=== PATIENT | female | born 1955 | race African-American/Black ===

== ENCOUNTER → 2017-03-21 | Outpatient (CLI) | payer MEDICARE ==
[2017-03-18 03:00] VITALS: BP 139/85
[~2017-03-21] MED LIST: ACET500T68 PO; AMIT50TA PO; ASPI325T8 PO; CEPH-264 PO; CHOL500016 PO; CLOB15OI3 TP; CYCL10TA2 PO; GABA600T2 PO; LOSA50TA6 PO; METF-620 PO; METO25TA4 PO; MULT-47 PO; NAPR375T3 PO; NITR0.4T22 SL; NPH,100V5 SQ; NYST15PO9 TP; SERT50TA8 PO; SITA50TA PO; TRAM50TA PO; VENTOLIN HFA18 GM INH; [UNRECOGNIZED DRUG - CODE] PO
== END | disposition home or self-care (01) ==
LOC: PMGWOUND 12:36
PROVIDERS: ATTEND Emergency Medicine Undersea and Hyperbaric Medicine
DX: T81.31XA Disruption of external operation (surgical) wound, not elsewhere classified, initial encounter (principal); I12.9 Hypertensive chronic kidney disease with stage 1 through stage 4 chronic kidney disease, or unspecified chronic kidney disease; N18.4 Chronic kidney disease, stage 4 (severe); E66.9 Obesity, unspecified; Z68.43 Body mass index [BMI] 50.0-59.9, adult; Z88.8 Allergy status to other drugs, medicaments and biological substances; Z79.4 Long term (current) use of insulin; Z88.5 Allergy status to narcotic agent; Z88.0 Allergy status to penicillin; Z85.43 Personal history of malignant neoplasm of ovary; Z85.42 Personal history of malignant neoplasm of other parts of uterus; Y92.89 Other specified places as the place of occurrence of the external cause; Y83.8 Other surgical procedures as the cause of abnormal reaction of the patient, or of later complication, without mention of misadventure at the time of the procedure
CPT/HCPCS: 97597; 97598; 97606

== ENCOUNTER → 2017-03-28 | Outpatient (CLI) | payer MEDICARE ==
[2017-03-18 03:00] VITALS: BP 139/85
== END | disposition home or self-care (01) ==
LOC: PMGWOUND 10:56
PROVIDERS: ATTEND Emergency Medicine Undersea and Hyperbaric Medicine
DX: T81.31XD Disruption of external operation (surgical) wound, not elsewhere classified, subsequent encounter (principal); E11.22 Type 2 diabetes mellitus with diabetic chronic kidney disease; I12.9 Hypertensive chronic kidney disease with stage 1 through stage 4 chronic kidney disease, or unspecified chronic kidney disease; N18.4 Chronic kidney disease, stage 4 (severe); E66.9 Obesity, unspecified; M19.90 Unspecified osteoarthritis, unspecified site; E11.42 Type 2 diabetes mellitus with diabetic polyneuropathy; N61.1 Abscess of the breast and nipple; Z85.42 Personal history of malignant neoplasm of other parts of uterus; Z68.43 Body mass index [BMI] 50.0-59.9, adult; Z85.43 Personal history of malignant neoplasm of ovary; Z79.4 Long term (current) use of insulin; Z88.5 Allergy status to narcotic agent; Z88.0 Allergy status to penicillin; Z88.8 Allergy status to other drugs, medicaments and biological substances; Y83.8 Other surgical procedures as the cause of abnormal reaction of the patient, or of later complication, without mention of misadventure at the time of the procedure
CPT/HCPCS: 97606

== ENCOUNTER → 2017-04-04 | Outpatient (CLI) | payer MEDICARE ==
[2017-03-18 03:00] VITALS: BP 139/85
== END | disposition home or self-care (01) ==
LOC: PMGWOUND 10:36
PROVIDERS: ATTEND Emergency Medicine Undersea and Hyperbaric Medicine
DX: T81.31XD Disruption of external operation (surgical) wound, not elsewhere classified, subsequent encounter (principal); E11.22 Type 2 diabetes mellitus with diabetic chronic kidney disease; I12.9 Hypertensive chronic kidney disease with stage 1 through stage 4 chronic kidney disease, or unspecified chronic kidney disease; N18.4 Chronic kidney disease, stage 4 (severe); E66.9 Obesity, unspecified; E11.42 Type 2 diabetes mellitus with diabetic polyneuropathy; M19.90 Unspecified osteoarthritis, unspecified site; Z85.43 Personal history of malignant neoplasm of ovary; Z85.42 Personal history of malignant neoplasm of other parts of uterus; Z88.8 Allergy status to other drugs, medicaments and biological substances; Z88.0 Allergy status to penicillin; Z88.5 Allergy status to narcotic agent; Z79.4 Long term (current) use of insulin; Z68.43 Body mass index [BMI] 50.0-59.9, adult; Y83.8 Other surgical procedures as the cause of abnormal reaction of the patient, or of later complication, without mention of misadventure at the time of the procedure
CPT/HCPCS: 99214

== ENCOUNTER → 2017-04-11 | Outpatient (CLI) | payer MEDICARE ==
[2017-03-18 03:00] VITALS: BP 139/85
== END | disposition home or self-care (01) ==
LOC: PMGWOUND 11:35
PROVIDERS: ATTEND Emergency Medicine Undersea and Hyperbaric Medicine
DX: T81.31XA Disruption of external operation (surgical) wound, not elsewhere classified, initial encounter (principal); M19.90 Unspecified osteoarthritis, unspecified site; E66.9 Obesity, unspecified; E11.42 Type 2 diabetes mellitus with diabetic polyneuropathy; E11.22 Type 2 diabetes mellitus with diabetic chronic kidney disease; I12.9 Hypertensive chronic kidney disease with stage 1 through stage 4 chronic kidney disease, or unspecified chronic kidney disease; N18.4 Chronic kidney disease, stage 4 (severe); Z68.43 Body mass index [BMI] 50.0-59.9, adult; Z85.43 Personal history of malignant neoplasm of ovary; Z79.4 Long term (current) use of insulin; Y83.8 Other surgical procedures as the cause of abnormal reaction of the patient, or of later complication, without mention of misadventure at the time of the procedure; Y92.89 Other specified places as the place of occurrence of the external cause
CPT/HCPCS: 99213

== ENCOUNTER → 2017-04-18 | Outpatient (CLI) | payer MEDICARE ==
[2017-03-18 03:00] VITALS: BP 139/85
== END | disposition home or self-care (01) ==
LOC: PMGWOUND 11:16
PROVIDERS: ATTEND Emergency Medicine Undersea and Hyperbaric Medicine
DX: T81.31XD Disruption of external operation (surgical) wound, not elsewhere classified, subsequent encounter (principal); M19.90 Unspecified osteoarthritis, unspecified site; E11.42 Type 2 diabetes mellitus with diabetic polyneuropathy; I10 Essential (primary) hypertension; E66.9 Obesity, unspecified; Z85.43 Personal history of malignant neoplasm of ovary; Z68.43 Body mass index [BMI] 50.0-59.9, adult; E11.22 Type 2 diabetes mellitus with diabetic chronic kidney disease; I12.9 Hypertensive chronic kidney disease with stage 1 through stage 4 chronic kidney disease, or unspecified chronic kidney disease; N18.4 Chronic kidney disease, stage 4 (severe); Z99.2 Dependence on renal dialysis; Y83.8 Other surgical procedures as the cause of abnormal reaction of the patient, or of later complication, without mention of misadventure at the time of the procedure
CPT/HCPCS: 17250

== ENCOUNTER → 2017-04-25 | Outpatient (CLI) | payer MEDICARE ==
[2017-03-18 03:00] VITALS: BP 139/85
== END | disposition home or self-care (01) ==
LOC: PMGWOUND 10:20
PROVIDERS: ATTEND Emergency Medicine Undersea and Hyperbaric Medicine
DX: T81.31XD Disruption of external operation (surgical) wound, not elsewhere classified, subsequent encounter (principal); N61.1 Abscess of the breast and nipple; M19.90 Unspecified osteoarthritis, unspecified site; E66.9 Obesity, unspecified; E11.42 Type 2 diabetes mellitus with diabetic polyneuropathy; Z85.43 Personal history of malignant neoplasm of ovary; Z68.43 Body mass index [BMI] 50.0-59.9, adult; E11.22 Type 2 diabetes mellitus with diabetic chronic kidney disease; I12.9 Hypertensive chronic kidney disease with stage 1 through stage 4 chronic kidney disease, or unspecified chronic kidney disease; N18.4 Chronic kidney disease, stage 4 (severe); Z99.2 Dependence on renal dialysis; Z79.4 Long term (current) use of insulin; Y83.8 Other surgical procedures as the cause of abnormal reaction of the patient, or of later complication, without mention of misadventure at the time of the procedure
CPT/HCPCS: 17250

== ENCOUNTER → 2017-05-09 | Outpatient (CLI) | payer MEDICARE ==
[2017-03-18 03:00] VITALS: BP 139/85
[~2017-05-09] MED LIST changes: +NAPR-695 PO; -NAPR375T3 PO
== END | disposition home or self-care (01) ==
LOC: PMGWOUND 10:11
PROVIDERS: ATTEND Emergency Medicine Undersea and Hyperbaric Medicine
DX: T81.31XD Disruption of external operation (surgical) wound, not elsewhere classified, subsequent encounter (principal); E66.9 Obesity, unspecified; E11.42 Type 2 diabetes mellitus with diabetic polyneuropathy; M19.90 Unspecified osteoarthritis, unspecified site; E11.22 Type 2 diabetes mellitus with diabetic chronic kidney disease; I12.9 Hypertensive chronic kidney disease with stage 1 through stage 4 chronic kidney disease, or unspecified chronic kidney disease; N18.4 Chronic kidney disease, stage 4 (severe); Z85.43 Personal history of malignant neoplasm of ovary; Z85.42 Personal history of malignant neoplasm of other parts of uterus; Z90.49 Acquired absence of other specified parts of digestive tract; Z68.43 Body mass index [BMI] 50.0-59.9, adult; Z79.4 Long term (current) use of insulin; Z99.2 Dependence on renal dialysis; Y83.8 Other surgical procedures as the cause of abnormal reaction of the patient, or of later complication, without mention of misadventure at the time of the procedure
CPT/HCPCS: 17250

== ENCOUNTER → 2017-05-16 | Outpatient (CLI) | payer MEDICARE ==
[2017-03-18 03:00] VITALS: BP 139/85
== END | disposition home or self-care (01) ==
LOC: PMGWOUND 10:17
PROVIDERS: ATTEND Emergency Medicine Undersea and Hyperbaric Medicine
DX: T81.31XD Disruption of external operation (surgical) wound, not elsewhere classified, subsequent encounter (principal); M19.90 Unspecified osteoarthritis, unspecified site; E11.42 Type 2 diabetes mellitus with diabetic polyneuropathy; E66.9 Obesity, unspecified; Z85.43 Personal history of malignant neoplasm of ovary; Y83.8 Other surgical procedures as the cause of abnormal reaction of the patient, or of later complication, without mention of misadventure at the time of the procedure
CPT/HCPCS: 99214

== ENCOUNTER → 2017-05-23 | Outpatient (CLI) | payer MEDICARE ==
[2017-03-18 03:00] VITALS: BP 139/85
== END | disposition home or self-care (01) ==
LOC: PMGWOUND 13:44
PROVIDERS: ATTEND Emergency Medicine Undersea and Hyperbaric Medicine
DX: T81.31XD Disruption of external operation (surgical) wound, not elsewhere classified, subsequent encounter (principal); N61.1 Abscess of the breast and nipple; E66.9 Obesity, unspecified; E11.42 Type 2 diabetes mellitus with diabetic polyneuropathy; M19.90 Unspecified osteoarthritis, unspecified site; E11.22 Type 2 diabetes mellitus with diabetic chronic kidney disease; I12.9 Hypertensive chronic kidney disease with stage 1 through stage 4 chronic kidney disease, or unspecified chronic kidney disease; N18.4 Chronic kidney disease, stage 4 (severe); Z85.42 Personal history of malignant neoplasm of other parts of uterus; Z99.2 Dependence on renal dialysis; Z79.4 Long term (current) use of insulin; Z68.43 Body mass index [BMI] 50.0-59.9, adult; Z90.49 Acquired absence of other specified parts of digestive tract; Z85.43 Personal history of malignant neoplasm of ovary; Y83.8 Other surgical procedures as the cause of abnormal reaction of the patient, or of later complication, without mention of misadventure at the time of the procedure
CPT/HCPCS: 99213

== ENCOUNTER → 2017-06-06 | Outpatient (CLI) | payer MEDICARE ==
[2017-03-18 03:00] VITALS: BP 139/85
== END | disposition home or self-care (01) ==
LOC: PMGWOUND 10:18
PROVIDERS: ATTEND Emergency Medicine Undersea and Hyperbaric Medicine
DX: T81.31XD Disruption of external operation (surgical) wound, not elsewhere classified, subsequent encounter (principal); M19.90 Unspecified osteoarthritis, unspecified site; E11.42 Type 2 diabetes mellitus with diabetic polyneuropathy; Z85.43 Personal history of malignant neoplasm of ovary; E11.22 Type 2 diabetes mellitus with diabetic chronic kidney disease; I12.9 Hypertensive chronic kidney disease with stage 1 through stage 4 chronic kidney disease, or unspecified chronic kidney disease; N18.4 Chronic kidney disease, stage 4 (severe); Z99.2 Dependence on renal dialysis; Z79.4 Long term (current) use of insulin; Y83.8 Other surgical procedures as the cause of abnormal reaction of the patient, or of later complication, without mention of misadventure at the time of the procedure
CPT/HCPCS: 99213

== ENCOUNTER → 2017-07-18 | Outpatient (CLI) | payer MEDICARE ==
[2017-03-18 03:00] VITALS: BP 139/85
[~2017-07-18] MED LIST changes: +CIPR250T30 PO
== END | disposition home or self-care (01) ==
LOC: PMGWOUND 10:00
PROVIDERS: ATTEND Emergency Medicine Undersea and Hyperbaric Medicine
DX: T81.31XD Disruption of external operation (surgical) wound, not elsewhere classified, subsequent encounter (principal); L30.8 Other specified dermatitis; B36.9 Superficial mycosis, unspecified; E66.9 Obesity, unspecified; E11.22 Type 2 diabetes mellitus with diabetic chronic kidney disease; I12.9 Hypertensive chronic kidney disease with stage 1 through stage 4 chronic kidney disease, or unspecified chronic kidney disease; N18.4 Chronic kidney disease, stage 4 (severe); E11.42 Type 2 diabetes mellitus with diabetic polyneuropathy; M19.90 Unspecified osteoarthritis, unspecified site; Z68.43 Body mass index [BMI] 50.0-59.9, adult; Z99.2 Dependence on renal dialysis; Z79.4 Long term (current) use of insulin; Z90.49 Acquired absence of other specified parts of digestive tract; Z85.42 Personal history of malignant neoplasm of other parts of uterus; Z85.43 Personal history of malignant neoplasm of ovary; Y83.8 Other surgical procedures as the cause of abnormal reaction of the patient, or of later complication, without mention of misadventure at the time of the procedure
CPT/HCPCS: 99214

== ENCOUNTER → 2017-08-01 | Outpatient (CLI) | payer MEDICARE ==
[2017-03-18 03:00] VITALS: BP 139/85
[~2017-08-01] MED LIST changes: -CIPR250T30 PO
--- NOTE | 2017-08-01 12:24 | RAD ---
DATE: 08/01/2017 EXAM: DIGITAL DIAGNOSTIC BILATERAL HISTORY: Follow-up left breast abscess, nonhealing wound COMPARISON: 03/16/2013 This study was interpreted with the benefit of Computerized Aided Detection (CAD). The breast parenchyma is primarily fatty replaced. Breast parenchyma level density A. FINDINGS: No new or enlarging breast densities are seen. There are scattered microcalcifications in both breasts. These have generally progressed since the previous study. These include 2 clusters in the lateral aspect of the left breast. The most prominent of these lies anteriorly. A magnification view of this most prominent anterior cluster demonstrates relatively benign features. IMPRESSION: Probably benign microcalcifications in the left breast. Mammographic surveillance consisting of left mammograms in 6 months and bilateral mammography at one year is suggested. BI-RADS CATEGORY: 3 PROBABLY BENIGN FINDING(S)-SHORT INTERVAL FOLLOW-UP SUGGESTED RECOMMENDED FOLLOW-UP: 6M 6 MONTH FOLLOW-UP PQRS compliance statement: Patient information was entered into a reminder system with a target due date for the next mammogram. Mammography is a sensitive method for finding small breast cancers, but it does not detect them all and is not a substitute for careful clinical examination. A negative mammogram does not negate a clinically suspicious finding and should not result in delay in biopsying a clinically suspicious abnormality. "Our facility is accredited by the [employer] Mammography Program."
== END | disposition home or self-care (01) ==
LOC: MAMMO 10:49
PROVIDERS: ATTEND Surgery
DX: N61.1 Abscess of the breast and nipple (principal)
CPT/HCPCS: G0204; 77066

== ENCOUNTER → 2017-08-01 | Outpatient (CLI) | payer MEDICARE ==
[2017-03-18 03:00] VITALS: BP 139/85
== END | disposition home or self-care (01) ==
LOC: PMGWOUND 09:56
PROVIDERS: ATTEND Emergency Medicine Undersea and Hyperbaric Medicine
DX: T81.31XD Disruption of external operation (surgical) wound, not elsewhere classified, subsequent encounter (principal); L30.8 Other specified dermatitis; B36.9 Superficial mycosis, unspecified; M19.90 Unspecified osteoarthritis, unspecified site; G62.9 Polyneuropathy, unspecified; E66.9 Obesity, unspecified; E11.22 Type 2 diabetes mellitus with diabetic chronic kidney disease; I12.9 Hypertensive chronic kidney disease with stage 1 through stage 4 chronic kidney disease, or unspecified chronic kidney disease; N18.4 Chronic kidney disease, stage 4 (severe); E11.42 Type 2 diabetes mellitus with diabetic polyneuropathy; Z99.2 Dependence on renal dialysis; Z79.4 Long term (current) use of insulin; Z85.42 Personal history of malignant neoplasm of other parts of uterus; Z90.10 Acquired absence of unspecified breast and nipple; Z85.43 Personal history of malignant neoplasm of ovary; Z68.43 Body mass index [BMI] 50.0-59.9, adult; Z90.49 Acquired absence of other specified parts of digestive tract; Y83.8 Other surgical procedures as the cause of abnormal reaction of the patient, or of later complication, without mention of misadventure at the time of the procedure
CPT/HCPCS: 99214

== ENCOUNTER → 2017-08-08 | Outpatient (CLI) | payer MEDICARE ==
[2017-03-18 03:00] VITALS: BP 139/85
== END | disposition home or self-care (01) ==
LOC: PMGWOUND 09:53
PROVIDERS: ATTEND Emergency Medicine Undersea and Hyperbaric Medicine
DX: T81.31XD Disruption of external operation (surgical) wound, not elsewhere classified, subsequent encounter (principal); L30.8 Other specified dermatitis; B36.9 Superficial mycosis, unspecified; M19.90 Unspecified osteoarthritis, unspecified site; E66.9 Obesity, unspecified; E11.22 Type 2 diabetes mellitus with diabetic chronic kidney disease; I12.9 Hypertensive chronic kidney disease with stage 1 through stage 4 chronic kidney disease, or unspecified chronic kidney disease; N18.4 Chronic kidney disease, stage 4 (severe); E11.42 Type 2 diabetes mellitus with diabetic polyneuropathy; Z90.10 Acquired absence of unspecified breast and nipple; Z90.49 Acquired absence of other specified parts of digestive tract; Z68.43 Body mass index [BMI] 50.0-59.9, adult; Z85.42 Personal history of malignant neoplasm of other parts of uterus; Z79.4 Long term (current) use of insulin; Z99.2 Dependence on renal dialysis; Z85.43 Personal history of malignant neoplasm of ovary; Y83.8 Other surgical procedures as the cause of abnormal reaction of the patient, or of later complication, without mention of misadventure at the time of the procedure
CPT/HCPCS: 82962; 99214

== ENCOUNTER → 2017-08-25 | Outpatient (CLI) | payer MEDICARE | END | disposition home or self-care (01) | LOC: PMGWOUND 13:06 | DX: T81.31XD Disruption of external operation (surgical) wound, not elsewhere classified, subsequent encounter (principal); L30.8 Other specified dermatitis; B36.9 Superficial mycosis, unspecified; E11.22 Type 2 diabetes mellitus with diabetic chronic kidney disease; I12.9 Hypertensive chronic kidney disease with stage 1 through stage 4 chronic kidney disease, or unspecified chronic kidney disease; N18.4 Chronic kidney disease, stage 4 (severe); E11.42 Type 2 diabetes mellitus with diabetic polyneuropathy; M19.90 Unspecified osteoarthritis, unspecified site; J45.909 Unspecified asthma, uncomplicated; E66.9 Obesity, unspecified; Z68.43 Body mass index [BMI] 50.0-59.9, adult; Z85.42 Personal history of malignant neoplasm of other parts of uterus; Z79.4 Long term (current) use of insulin; Z99.2 Dependence on renal dialysis; Z85.43 Personal history of malignant neoplasm of ovary; Y83.8 Other surgical procedures as the cause of abnormal reaction of the patient, or of later complication, without mention of misadventure at the time of the procedure | CPT/HCPCS: 99214 ==

== ENCOUNTER → 2017-09-15 | Outpatient (CLI) | payer BC, MEDICARE | END | disposition home or self-care (01) | LOC: PMGWOUND 12:20 | DX: T81.31XD Disruption of external operation (surgical) wound, not elsewhere classified, subsequent encounter (principal); B36.9 Superficial mycosis, unspecified; L30.8 Other specified dermatitis; E11.22 Type 2 diabetes mellitus with diabetic chronic kidney disease; I12.9 Hypertensive chronic kidney disease with stage 1 through stage 4 chronic kidney disease, or unspecified chronic kidney disease; N18.4 Chronic kidney disease, stage 4 (severe); E11.42 Type 2 diabetes mellitus with diabetic polyneuropathy; M19.90 Unspecified osteoarthritis, unspecified site; J45.909 Unspecified asthma, uncomplicated; E66.9 Obesity, unspecified; Z68.43 Body mass index [BMI] 50.0-59.9, adult; Z85.42 Personal history of malignant neoplasm of other parts of uterus; Z99.2 Dependence on renal dialysis; Z85.43 Personal history of malignant neoplasm of ovary; Y83.8 Other surgical procedures as the cause of abnormal reaction of the patient, or of later complication, without mention of misadventure at the time of the procedure | CPT/HCPCS: 99214 ==

== ENCOUNTER → 2017-09-29 | Outpatient (CLI) | payer BC | END | disposition home or self-care (01) | LOC: PMGWOUND 11:40 | DX: T81.31XD Disruption of external operation (surgical) wound, not elsewhere classified, subsequent encounter (principal); L30.8 Other specified dermatitis; B36.9 Superficial mycosis, unspecified; E11.22 Type 2 diabetes mellitus with diabetic chronic kidney disease; I12.9 Hypertensive chronic kidney disease with stage 1 through stage 4 chronic kidney disease, or unspecified chronic kidney disease; N18.4 Chronic kidney disease, stage 4 (severe); E11.42 Type 2 diabetes mellitus with diabetic polyneuropathy; M19.90 Unspecified osteoarthritis, unspecified site; J45.909 Unspecified asthma, uncomplicated; E66.9 Obesity, unspecified; Z68.43 Body mass index [BMI] 50.0-59.9, adult; Z85.42 Personal history of malignant neoplasm of other parts of uterus; Z99.2 Dependence on renal dialysis; Z85.43 Personal history of malignant neoplasm of ovary; Y83.8 Other surgical procedures as the cause of abnormal reaction of the patient, or of later complication, without mention of misadventure at the time of the procedure | CPT/HCPCS: 99214 ==

== ENCOUNTER → 2017-10-13 | Outpatient (CLI) | payer BC | END | disposition home or self-care (01) | LOC: PMGWOUND 11:29 | DX: T81.31XD Disruption of external operation (surgical) wound, not elsewhere classified, subsequent encounter (principal); L30.8 Other specified dermatitis; B36.9 Superficial mycosis, unspecified; E11.22 Type 2 diabetes mellitus with diabetic chronic kidney disease; I12.9 Hypertensive chronic kidney disease with stage 1 through stage 4 chronic kidney disease, or unspecified chronic kidney disease; N18.4 Chronic kidney disease, stage 4 (severe); E11.42 Type 2 diabetes mellitus with diabetic polyneuropathy; F32.9 Major depressive disorder, single episode, unspecified; E78.5 Hyperlipidemia, unspecified; E11.65 Type 2 diabetes mellitus with hyperglycemia; M19.90 Unspecified osteoarthritis, unspecified site; J45.909 Unspecified asthma, uncomplicated; E66.9 Obesity, unspecified; Z68.43 Body mass index [BMI] 50.0-59.9, adult; Z85.42 Personal history of malignant neoplasm of other parts of uterus; Z99.2 Dependence on renal dialysis; Z85.43 Personal history of malignant neoplasm of ovary; Z79.4 Long term (current) use of insulin; Y83.8 Other surgical procedures as the cause of abnormal reaction of the patient, or of later complication, without mention of misadventure at the time of the procedure | CPT/HCPCS: 99212 ==

== ENCOUNTER → 2017-10-28 | Outpatient (CLI) | payer BC | END | disposition home or self-care (01) | LOC: PMGWOUND 09:57 | DX: T81.31XD Disruption of external operation (surgical) wound, not elsewhere classified, subsequent encounter (principal); L30.8 Other specified dermatitis; B36.9 Superficial mycosis, unspecified; E11.22 Type 2 diabetes mellitus with diabetic chronic kidney disease; I12.9 Hypertensive chronic kidney disease with stage 1 through stage 4 chronic kidney disease, or unspecified chronic kidney disease; N18.4 Chronic kidney disease, stage 4 (severe); E11.42 Type 2 diabetes mellitus with diabetic polyneuropathy; F32.9 Major depressive disorder, single episode, unspecified; E78.5 Hyperlipidemia, unspecified; E11.65 Type 2 diabetes mellitus with hyperglycemia; M19.90 Unspecified osteoarthritis, unspecified site; J45.909 Unspecified asthma, uncomplicated; E66.9 Obesity, unspecified; E03.9 Hypothyroidism, unspecified; G89.29 Other chronic pain; Z68.43 Body mass index [BMI] 50.0-59.9, adult; Z85.42 Personal history of malignant neoplasm of other parts of uterus; Z99.2 Dependence on renal dialysis; Z79.82 Long term (current) use of aspirin; Z85.43 Personal history of malignant neoplasm of ovary; Z79.4 Long term (current) use of insulin; Y83.8 Other surgical procedures as the cause of abnormal reaction of the patient, or of later complication, without mention of misadventure at the time of the procedure | CPT/HCPCS: 99213 ==

== ENCOUNTER → 2017-11-14 | Outpatient (CLI) | payer BC | END | disposition home or self-care (01) | LOC: SLPLAB 18:29 | DX: G47.33 Obstructive sleep apnea (adult) (pediatric) (principal) | CPT/HCPCS: 95810 ==

== ENCOUNTER → 2017-11-15 | Outpatient (CLI) | payer BC | END | disposition home or self-care (01) | LOC: PMGWOUND 10:01 | DX: T81.31XD Disruption of external operation (surgical) wound, not elsewhere classified, subsequent encounter (principal); L30.8 Other specified dermatitis; B36.9 Superficial mycosis, unspecified; E11.22 Type 2 diabetes mellitus with diabetic chronic kidney disease; I12.9 Hypertensive chronic kidney disease with stage 1 through stage 4 chronic kidney disease, or unspecified chronic kidney disease; N18.4 Chronic kidney disease, stage 4 (severe); E11.42 Type 2 diabetes mellitus with diabetic polyneuropathy; F32.9 Major depressive disorder, single episode, unspecified; E78.5 Hyperlipidemia, unspecified; E11.65 Type 2 diabetes mellitus with hyperglycemia; M19.90 Unspecified osteoarthritis, unspecified site; J45.909 Unspecified asthma, uncomplicated; E66.9 Obesity, unspecified; E03.9 Hypothyroidism, unspecified; G89.29 Other chronic pain; Z68.43 Body mass index [BMI] 50.0-59.9, adult; Z85.42 Personal history of malignant neoplasm of other parts of uterus; Z99.2 Dependence on renal dialysis; Z79.82 Long term (current) use of aspirin; Z85.43 Personal history of malignant neoplasm of ovary; Z79.4 Long term (current) use of insulin; Y83.8 Other surgical procedures as the cause of abnormal reaction of the patient, or of later complication, without mention of misadventure at the time of the procedure | CPT/HCPCS: 99214 ==

== ENCOUNTER → 2017-11-29 | Outpatient (CLI) | payer BC | END | disposition home or self-care (01) | LOC: PMGWOUND 10:19 | DX: T81.31XD Disruption of external operation (surgical) wound, not elsewhere classified, subsequent encounter (principal); L30.8 Other specified dermatitis; B36.9 Superficial mycosis, unspecified; E11.22 Type 2 diabetes mellitus with diabetic chronic kidney disease; I12.9 Hypertensive chronic kidney disease with stage 1 through stage 4 chronic kidney disease, or unspecified chronic kidney disease; N18.4 Chronic kidney disease, stage 4 (severe); E11.42 Type 2 diabetes mellitus with diabetic polyneuropathy; F32.9 Major depressive disorder, single episode, unspecified; E78.5 Hyperlipidemia, unspecified; E11.65 Type 2 diabetes mellitus with hyperglycemia; M19.90 Unspecified osteoarthritis, unspecified site; J45.909 Unspecified asthma, uncomplicated; E66.9 Obesity, unspecified; E03.9 Hypothyroidism, unspecified; G89.29 Other chronic pain; Z68.43 Body mass index [BMI] 50.0-59.9, adult; Z85.42 Personal history of malignant neoplasm of other parts of uterus; Z99.2 Dependence on renal dialysis; Z79.82 Long term (current) use of aspirin; Z85.43 Personal history of malignant neoplasm of ovary; Z79.4 Long term (current) use of insulin; Y83.8 Other surgical procedures as the cause of abnormal reaction of the patient, or of later complication, without mention of misadventure at the time of the procedure | CPT/HCPCS: 99214 ==

== ENCOUNTER → 2017-12-13 | Outpatient (CLI) | payer BC | END | disposition home or self-care (01) | LOC: PMGWOUND 10:01 | DX: T81.31XD Disruption of external operation (surgical) wound, not elsewhere classified, subsequent encounter (principal); L30.8 Other specified dermatitis; B36.9 Superficial mycosis, unspecified; E11.22 Type 2 diabetes mellitus with diabetic chronic kidney disease; I12.9 Hypertensive chronic kidney disease with stage 1 through stage 4 chronic kidney disease, or unspecified chronic kidney disease; N18.4 Chronic kidney disease, stage 4 (severe); E11.42 Type 2 diabetes mellitus with diabetic polyneuropathy; F32.9 Major depressive disorder, single episode, unspecified; E78.5 Hyperlipidemia, unspecified; E11.65 Type 2 diabetes mellitus with hyperglycemia; M19.90 Unspecified osteoarthritis, unspecified site; J45.909 Unspecified asthma, uncomplicated; E66.9 Obesity, unspecified; E03.9 Hypothyroidism, unspecified; G89.29 Other chronic pain; Z68.43 Body mass index [BMI] 50.0-59.9, adult; Z85.42 Personal history of malignant neoplasm of other parts of uterus; Z99.2 Dependence on renal dialysis; Z79.82 Long term (current) use of aspirin; Z85.43 Personal history of malignant neoplasm of ovary; Z79.4 Long term (current) use of insulin; Y83.8 Other surgical procedures as the cause of abnormal reaction of the patient, or of later complication, without mention of misadventure at the time of the procedure | CPT/HCPCS: G0463 ==

== ENCOUNTER 2018-09-26 12:35 | Emergency (ER) | payer BC, OTHER ==
[~2018-09-26] VITALS: Ht 162.6 cm; Wt 136.5 kg
[~2018-09-26 12:35] MED LIST changes: +CIPR250T30 PO; +LEVO75TA5 PO; +LOSA-73 PO; -LOSA50TA6 PO; -METF-620 PO; +METF10007 PO; +METF500T16 PO; +ONDA8TAB12 PO
[2018-09-26] MEDS ORDERED: IV NORMAL SALINE 1000ML BAG 1,000 ML IV SCH (13:21)
[2018-09-26 13:33] LABS: BILIRUBIN,URINE NEGATIVE (NEG); CLARITY,URINE CLEAR; COLOR,URINE YELLOW; NITRITE,URINE NEGATIVE (NEG); PH,URINE 5.5; PROTEIN,URINE 100 mg/dL (NEG-TRACE)
[2018-09-26 13:38] LABS: BASO # 0.1 x10^3/uL (0.0-0.2); BASO % 1 % (0-3); EOS # 0.3 x10^3/uL (0.0-0.7); EOS % 3 % (0-3); HEMATOCRIT 35.1 % (36.0-47.0); HEMOGLOBIN 11.6 g/dL (12.0-15.5); LYMPH # 1.6 x10^3/uL (1.0-4.8); LYMPH % 19 % (24-48); MEAN CORPUSCULAR HEMOGLOBIN 26 pg (25-35); MEAN CORPUSCULAR HGB CONC 33 g/dL (31-37); MEAN CORPUSCULAR VOLUME 79 fL (79-100); MONO # 0.4 x10^3/uL (0.0-1.1); MONO % 5 % (0-9); NEUT % 72 % (31-73); PLATELET COUNT 244 x10^3/uL (140-400); RED BLOOD COUNT 4.45 x10^6/uL (3.50-5.40); RED CELL DISTRIBUTION WIDTH 13.9 % (11.5-14.5); WHITE BLOOD COUNT 8.4 x10^3/uL (4.0-11.0)
--- NOTE | 2018-09-26 13:38 | PHYS DOC ---
Past Medical History Past Medical History: Anemia, Asthma, Cancer, Diabetes-Type II, Fibromyalgia, Hypertension Additional Past Medical Histor: UTERINE CA Past Surgical History: Cholecystectomy, Other Additional Past Surgical Histo: Hiatel hernia,L)breast wound,Mirena removed& replaced. Alcohol Use: None Drug Use: None Adult General Chief Complaint Chief Complaint: DIZZY/LIGHT HEADED HPI HPI Patient is a 63 year old female who presents with high blood sugar. Patient has been off of her diabetes medicines since the beginning of August 2018 due to inability to pay for it. Patient reports that she started a new insurance plan that is supposed to pay for more for the medicine but has not yet received any medication. Patient was sent here by her primary care physician. Patient reports a generalized weakness, no chest pain, however there is increased thirst , increased urination, and increased hunger. Patient was admitted to the hospital approximately a month ago for similar symptoms with an elevated blood sugar. Nothing seems to make the symptoms better or worse. Patient reports that the intensity of the symptoms is moderate. [] Review of Systems Review of Systems Constitutional: Denies fever or chills [] Eyes: Denies change in visual acuity, redness, or eye pain [] HENT: Denies nasal congestion or sore throat [] Respiratory: Denies cough or shortness of breath [] Cardiovascular: No chest pain or palpitations[] GI: Denies abdominal pain, nausea, vomiting, bloody stools or diarrhea [] : Denies dysuria or hematuria [] Musculoskeletal: Denies back pain or joint pain [] Integument: Denies rash or skin lesions [] Neurologic: Denies headache, focal weakness or sensory changes [] Endocrine: See history of present illness[] All other systems were reviewed and found to be within normal limits, except as documented in this note. Current Medications Current Medications Current Medications Medications (Trade) Dose Ordered Sig/Erin Start Time Stop Time Status Last Admin Dose Admin Sodium Chloride 1,000 ml @ 1,000 mls/hr Q1H 09/26/18 13:21 09/26/18 14:20 DC 09/26/18 13:39 1,000 MLS/HR Allergies Allergies Allergies Coded Allergies Type Severity Reaction Last Updated Verified Fish Containing Products Allergy Severe 03/11/17 Yes Penicillins Allergy Intermediate Rash 03/11/17 Yes Sulfa (Sulfonamide Antibiotics) Allergy Intermediate 08/09/17 Yes codeine Allergy Intermediate 03/17/17 Yes oxycodone Allergy Intermediate 03/17/17 Yes trazodone Allergy Intermediate 03/17/17 Yes metformin Allergy Mild Diarrhea 03/11/17 Yes Physical Exam Physical Exam Constitutional: Well developed, well nourished, no acute distress, non-toxic appearance. [] HENT: Normocephalic, atraumatic, bilateral external ears normal, oropharynx dry , no oral exudates, nose normal. [] Eyes: PERRLA, EOMI, conjunctiva normal, no discharge. [] Neck: Normal range of motion, no tenderness, supple, no stridor. [] Cardiovascular:Heart rate regular rhythm, no murmur [] Lungs & Thorax: Bilateral breath sounds clear to auscultation [] Abdomen: Bowel sounds normal, soft, no tenderness, no masses, no pulsatile masses. [] Skin: Warm, dry, no erythema, no rash. [] Back: No tenderness, no CVA tenderness. [] Extremities: No tenderness, no cyanosis, no clubbing, ROM intact, no edema. [] Neurologic: Alert and oriented X 3, normal motor function, normal sensory function, no focal deficits noted. [] Psychologic: Affect normal, judgement normal, mood normal. [] Current Patient Data Vital Signs Vital Signs Date Time Temp Pulse Resp B/P (MAP) Pulse Ox O2 Delivery O2 Flow Rate FiO2 09/26/18 13:02 97.7 93 20 166/59 (94) 97 Room Air 97.7 Lab Values Laboratory Tests Test 09/26/18 12:56 09/26/18 13:15 09/26/18 13:25 09/26/18 14:15 Urine Collection Type Unknown Urine Color Yellow Urine Clarity Clear Urine pH 5.5 Urine Specific [place] 1.025 Urine Protein 100 mg/dL (NEG-TRACE) Urine Glucose (UA) >=1000 mg/dL (NEG) Urine Ketones (Stick) Negative mg/dL (NEG) Urine Blood Trace (NEG) Urine Nitrite Negative (NEG) Urine Bilirubin Negative (NEG) Urine Urobilinogen Dipstick 1.0 mg/dL (0.2 mg/dL) Urine Leukocyte Esterase Negative (NEG) Urine RBC 1-2 /HPF (0-2) Urine WBC Occ /HPF (0-4) Urine Squamous Epithelial Cells Few /LPF Urine Bacteria Few /HPF (0-FEW) Glucose (Fingerstick) 449 mg/dL (70-99) H White Blood Count 8.4 x10^3/uL (4.0-11.0) Red Blood Count 4.45 x10^6/uL (3.50-5.40) Hemoglobin 11.6 g/dL (12.0-15.5) L Hematocrit 35.1 % (36.0-47.0) L Mean Corpuscular Volume 79 fL (79-100) Mean Corpuscular Hemoglobin 26 pg (25-35) Mean Corpuscular Hemoglobin Concent 33 g/dL (31-37) Red Cell Distribution Width 13.9 % (11.5-14.5) Platelet Count 244 x10^3/uL (140-400) Neutrophils (%) (Auto) 72 % (31-73) Lymphocytes (%) (Auto) 19 % (24-48) L Monocytes (%) (Auto) 5 % (0-9) Eosinophils (%) (Auto) 3 % (0-3) Basophils (%) (Auto) 1 % (0-3) Neutrophils # (Auto) 6.0 x10^3uL (1.8-7.7) Lymphocytes # (Auto) 1.6 x10^3/uL (1.0-4.8) Monocytes # (Auto) 0.4 x10^3/uL (0.0-1.1) Eosinophils # (Auto) 0.3 x10^3/uL (0.0-0.7) Basophils # (Auto) 0.1 x10^3/uL (0.0-0.2) Prothrombin Time 12.7 SEC (11.7-14.0) Prothrombin Time INR 1.0 (0.8-1.1) Sodium Level 136 mmol/L (136-145) Potassium Level 4.3 mmol/L (3.5-5.1) Chloride Level 98 mmol/L (98-107) Carbon Dioxide Level 28 mmol/L (21-32) Anion Gap 10 (6-14) Blood Urea Nitrogen 24 mg/dL (7-20) H Creatinine 1.6 mg/dL (0.6-1.0) H Estimated GFR (Cockcroft-Gault) 39.1 BUN/Creatinine Ratio 15 (6-20) Glucose Level 487 mg/dL (70-99) H Calcium Level 9.6 mg/dL (8.5-10.1) Total Bilirubin 0.3 mg/dL (0.2-1.0) Aspartate Amino Transferase (AST) 9 U/L (15-37) L Alanine Aminotransferase (ALT) 10 U/L (14-59) L Alkaline Phosphatase 140 U/L (46-116) H Troponin I Quantitative < 0.017 ng/mL (0.000-0.055) Total Protein 7.3 g/dL (6.4-8.2) Albumin 2.8 g/dL (3.4-5.0) L Albumin/Globulin Ratio 0.6 (1.0-1.7) L O2 Saturation 92 % (92-99) Arterial Blood pH 7.36 (7.35-7.45) Arterial Blood pCO2 at Patient Temp 48 mmHg (35-46) H Arterial Blood pO2 at Patient Temp 66 mmHg (65-108) Arterial Blood HCO3 27 mmol/L (21-28) Arterial Blood Base Excess 1 mmol/L (-3-3) FiO2 21 Test 09/26/18 15:04 Glucose (Fingerstick) 415 mg/dL (70-99) H Laboratory Tests 09/26/18 13:25 Laboratory Tests 09/26/18 13:25 EKG EKG EKG shows a sinus rhythm at 91 bpm, normal axis, QTC of 448 ms, no ST elevations. When compared with EKG of 08/08/2017, no acute changes are present.[ ] Radiology/Procedures Radiology/Procedures AP View of the chest DATE: 09/26/2018 1:20 PM INDICATION: WEAKNESS, HYPERGLYCEMIA COMPARISON: No Prior FINDINGS: Heart is moderately enlarged. Aorta is tortuous. Bibasilar patchy airspace opacities, possibly atelectasis, accentuated by overlying soft tissues. Trace bilateral pleural effusions. No pneumothorax. IMPRESSION: 1. Mild bibasilar patchy opacities, favored to represent atelectasis, suspected small pleural effusions.[] Course & Med Decision Making Course & Med Decision Making Pertinent Labs and Imaging studies reviewed. (See chart for details) ED course: Patient arrived, was placed in bed, in tolerated exam well. Patient was given IV fluids which didn't improve her blood sugar. Also improved her feeling of dizziness and weakness. Given that there is no evidence of diabetic ketoacidosis, and the patient has been off of her diabetes medicines due to financial issues, we will start the patient on a "[employer] $4 list," despite being $9/month, medication to try to help with compliance. Unfortunately the sulfonylureas which are $4 are contraindicated given her sulfa medication allergy. Do not see any evidence of need for admission at this time. Discussed the findings and plan with the patient who voiced understanding. All questions were answered. Medical decision making: Do not see any evidence of DKA, acute coronary syndrome , an infectious process, or need for admission.[] Dragon Disclaimer Dragon Disclaimer This electronic medical record was generated, in whole or in part, using a voice recognition dictation system. Departure Departure Impression: Primary Impression: Poorly controlled diabetes mellitus Disposition: HOME, SELF-CARE Condition: IMPROVED Referrals: JARETH GARZA MD (PCP) Follow-up with your doctor in 2 days. Patient Instructions: 1800 Calorie Diet for Diabetes Meal Planning, DASH Diet, Type 2 Diabetes Mellitus, Adult Additional Instructions: Follow-up with your regular doctor in 2 days. Drink plenty of fluids. Follow the diabetic diet planning guide. Return to the ER if unable to tolerate oral intake, your blood sugar is under 80, or any other concerns. Scripts Pioglitazone Hcl (PIOGLITAZONE HCL) 15 Mg Tablet 15 MG PO DAILY for 30 Days, #30 TAB Prov: ROSIE TOMLINSON DO 09/26/18 ROSIE TOMLINSON DO Sep 26, 2018 13:38
[2018-09-26 13:45] LABS: BACTERIA,URINE FEW /HPF (0-FEW); SQUAMOUS EPITHELIAL CELL,UR FEW /LPF; WBC,URINE OCC /HPF (0-4)
[2018-09-26 13:48] LABS: PROTHROMBIN TIME PATIENT 12.7 SEC (11.7-14.0)
[2018-09-26 13:50] LABS: CALCIUM 9.6 mg/dL (8.5-10.1); CREATININE 1.6 mg/dL (0.6-1.0); GFR 39.1; POTASSIUM 4.3 mmol/L (3.5-5.1)
[2018-09-26 13:58] LABS: ALBUMIN 2.8 g/dL (3.4-5.0); ALBUMIN/GLOBULIN RATIO 0.6 (1.0-1.7); TOTAL BILIRUBIN 0.3 mg/dL (0.2-1.0); TOTAL PROTEIN 7.3 g/dL (6.4-8.2)
[2018-09-26 14:29] LABS: BASE EXCESS ABG 1 mmol/L (-3-3); HCO3 ABG 27 mmol/L (21-28); PCO2 ABG 48 mmHg (35-46); PO2 ABG 66 mmHg (65-108); SAT O2 ABG 92 % (92-99)
[2018-09-26 14:32] LABS: FIO2 ABG 21
--- NOTE | 2018-09-26 14:34 | RAD ---
EXAM: AP View of the chest DATE: 09/26/2018 1:20 PM INDICATION: WEAKNESS, HYPERGLYCEMIA COMPARISON: No Prior FINDINGS: Heart is moderately enlarged. Aorta is tortuous. Bibasilar patchy airspace opacities, possibly atelectasis, accentuated by overlying soft tissues. Trace bilateral pleural effusions. No pneumothorax. IMPRESSION: 1. Mild bibasilar patchy opacities, favored to represent atelectasis, suspected small pleural effusions. Electronically signed by: Dion Shelton MD (09/26/2018 2:29 PM) [id number]
--- NOTE | 2018-09-26 14:39 | EKG ---
[facility] [address] [place] [address] Test Date: 2018-09-26 Test Time: 13:04:02 Pat Name: KELSY HOOD Department: Room: Gender: F Rn Transport: : 1955 Requested By: ROSIE TOMLINSON Order Number: [id number] Reading MD: Measurements Intervals Robinson Rate: 91 P: 27 UT: 152 QRS: 36 QRSD: 88 T: 77 QT: 358 QTc: 448 Interpretive Statements SINUS RHYTHM T ABNORMALITY IN HIGH LATERAL LEADS ABNORMAL ECG RI6.01 No previous ECG available for comparison
[2018-09-26 15:00] VITALS: BP 173/81
[2018-09-26] MEDS ORDERED: PIOG15TA63 PO (15:34)
== END 2018-09-26 15:50 | disposition home or self-care (01) ==
LOC: ER 12:35
DX: E11.65 Type 2 diabetes mellitus with hyperglycemia (principal); R53.1 Weakness; J45.909 Unspecified asthma, uncomplicated; I10 Essential (primary) hypertension; Z90.49 Acquired absence of other specified parts of digestive tract; Z98.890 Other specified postprocedural states; Z85.42 Personal history of malignant neoplasm of other parts of uterus; Z88.0 Allergy status to penicillin; Z88.5 Allergy status to narcotic agent; Z88.2 Allergy status to sulfonamides; Z88.1 Allergy status to other antibiotic agents; Z88.8 Allergy status to other drugs, medicaments and biological substances; Z91.013 Allergy to seafood
CPT/HCPCS: 36415; 36600; 71045; 80053; 81001; 82805; 82962; 84484; 85025; 85610; 93005; 96360; 99284; J7030

== ENCOUNTER → 2020-04-18 | Outpatient (CLI) | payer OTHER ==
[~2020-04-18] MED LIST changes: -GABA600T2 PO; +GABA600T7 PO; +PIOG15TA63 PO; +[UNRECOGNIZED DRUG - CODE] PO; -[UNRECOGNIZED DRUG - CODE] PO
--- NOTE | 2020-04-18 13:07 | RAD ---
VENOUS LOWER EXTREMITY RIGHT 04/18/2020 12:30 PM Clinical Information: Lower extremity swelling. Comparison: None. Technique: Multiple grayscale, color Doppler, and spectral Doppler sonographic images of the lower extremity venous structures were obtained. Findings: The right common femoral, femoral, and popliteal veins exhibit normal compression, respiratory phasicity, and augmentation. No intraluminal thrombi are identified. Color Doppler flow is demonstrated in the right posterior tibial veins. Greater saphenous vein patent at the saphenofemoral junction. Impression: 1. No evidence of deep venous thrombosis. Electronically signed by: Amelia Merlos MD (04/18/2020 1:04 PM) [id number]
== END | disposition home or self-care (01) ==
LOC: US 12:05
PROVIDERS: ATTEND Internal Medicine
DX: R22.41 Localized swelling, mass and lump, right lower limb (principal)
CPT/HCPCS: 93971

== ENCOUNTER → 2020-04-24 | Outpatient (CLI) | payer OTHER ==
--- NOTE | 2020-04-24 12:47 | RAD ---
Indication: Reason: SOB ELEVATED D DIMER / Technique: Static images are obtained of both lungs following IV administration of 5.5 mCi of 99 M technetium MAA. Comparison: Chest x-ray from same day Findings: Cardiomediastinal silhouette is prominent in size. There is some mild perfusion heterogeneity bilaterally without a definite large perfusion defect. Impression: 1. Mild heterogeneity to the perfusion of the lungs. Cannot assess whether these regions of decreased perfusion are matched or not given lack of ventilation therefore the this exam falls in the intermediate probability range. Electronically signed by: Leonidas Sierra MD (04/24/2020 12:45 PM) [id number]
--- NOTE | 2020-04-24 13:12 | RAD ---
EXAM: CHEST PA LATERAL INDICATION: Reason: SHORTNESS OF BREATH. / Spl. Instructions: / History: . TECHNIQUE: Single view COMPARISON: 09/26/2018 FINDINGS: Stable upper normal heart size. The great vessels appear unremarkable. There is no hilar or mediastinal mass. Lungs show increased hazy density at the right lung base. There is slightly greater prominence of the pulmonary vascular markings as well. There is no pleural effusion or pneumothorax. There are no significant osseous abnormalities. IMPRESSION: Stable cardiomegaly with findings suspicious for developing pulmonary vascular congestion asymmetric on the right. Electronically signed by: Bernadette Christian MD (04/24/2020 1:09 PM) [id number]
== END | disposition home or self-care (01) ==
LOC: NM 11:25
PROVIDERS: ATTEND Internal Medicine
DX: J98.4 Other disorders of lung (principal); R06.02 Shortness of breath; R79.1 Abnormal coagulation profile; I51.7 Cardiomegaly
CPT/HCPCS: 71046; 78580; A9540

== ENCOUNTER 2020-10-08 21:25 | Emergency (ER) | payer MEDICARE, OTHER ==
[~2020-10-08] VITALS: Ht 160 cm; Wt 137.0 kg
[~2020-10-08 21:25] MED LIST changes: +SERT-267 PO; -SERT50TA8 PO
--- NOTE | 2020-10-08 22:11 | PHYS DOC ---
Past Medical History Past Medical History: Anemia, Asthma, Cancer, Diabetes-Type II, Fibromyalgia, Hypertension Additional Past Medical Histor: UTERINE CA Past Surgical History: Cholecystectomy, Other Additional Past Surgical Histo: Hiatel hernia,L)breast wound,Mirena removed&replaced. Smoking Status: Never Smoker Alcohol Use: None Drug Use: None General Adult EDM: Chief Complaint: MECHANICAL FALL HPI: HPI: Patient is a 65 year old female presents emergency department stating that she was sitting on the side of her bed this evening when she slipped on her slippery ground and went to the floor onto her knees. Patient states that it took her grandchildren and her to help her up off the floor. Patient states she has chronic knee pain but both knees started hurting more than usual. Patient reports a 10/10 on a 1-10 pain scale of both knees. Patient denies any other aches or pains, denies numbness or tingling down her lower extremities, states she did not take anything for the pain prior to coming into the emergency department. Patient denies chest pain, shortness of breath, chest palpitations, cough or congestion. Patient states she did not become dizzy and fall, she states that she slipped on her bottom off the side of the bed. Patient denies any other physical complaints or physical concerns. Review of Systems: Review of Systems: 14 body systems of review of systems have been reviewed. See HPI for pertinent positives and negative responses, otherwise all other systems are negative, nonpertinent or noncontributory. Heart Score: Risk Factors: Risk Factors: DM, Current or recent (<one month) smoker, HTN, HLP, family history of CAD, obesity. Risk Scores: Score 0 - 3: 2.5% MACE over next 6 weeks - Discharge Home Score 4 - 6: 20.3% MACE over next 6 weeks - Admit for Clinical Observation Score 7 - 10: 72.7% MACE over next 6 weeks - Early Invasive Strategies Allergies: Allergies: Allergies Coded Allergies Type Severity Reaction Last Updated Verified Fish Containing Products Allergy Severe 03/11/17 Yes Penicillins Allergy Intermediate Rash 03/11/17 Yes Sulfa (Sulfonamide Antibiotics) Allergy Intermediate 08/09/17 Yes codeine Allergy Intermediate 03/17/17 Yes oxycodone Allergy Intermediate 03/17/17 Yes trazodone Allergy Intermediate 03/17/17 Yes metformin Allergy Mild Diarrhea 03/11/17 Yes Physical Exam: PE: Constitutional: Well developed, well nourished, no acute distress, non-toxic appearance. Patient is morbidly obese. Patient anxious during exam, complaint of pain exceeds patient's physical appearance. HENT: Normocephalic, atraumatic, bilateral external ears normal, oropharynx moist, no oral exudates, nose normal. Eyes: PERRLA, EOMI, conjunctiva normal, no discharge. Neck: Normal range of motion, no tenderness, supple, no stridor. Cardiovascular:Heart rate regular rhythm, no murmur Lungs & Thorax: Bilateral breath sounds clear to auscultation Abdomen: Bowel sounds normal, soft, no tenderness, no masses, no pulsatile masses. Skin: Warm, dry, no erythema, no rash. Back: No tenderness, no CVA tenderness. Extremities: No tenderness, no cyanosis, no clubbing, ROM intact, no edema. Pain to bilateral knees anteriorly, no posterior knee pain, pain elicited with passive range of motion, distal cap refill less than 2 seconds, 2+ dorsalis pedis/posterior tibial pulses. No swelling appreciated of the lower extremity. No loss of sensation, remains neurovascular intact. Neurologic: Alert and oriented X 3, normal motor function, normal sensory function, no focal deficits noted. Psychologic: Affect normal, judgement normal, mood normal. EKG: EKG: [] Radiology/Procedures: Radiology/Procedures: PATIENT: KELSY HOODACCOUNT: [id number] : 1955 LOCATION: ER AGE: 65 SEX: F EXAM STATUS: REG ER ORD. PHYSICIAN: SEBLE MCCORMICK APRN REASON: FALL PROCEDURE: KNEE LEFT 4V Exam: Bilateral knee 3 views INDICATION: Fall TECHNIQUE: Frontal, lateral and oblique views of the bilateral knee Comparisons: None FINDINGS: Right knee: Severe degenerative change at the right knee greatest in the medial compartment with [id number]. No acute fractures identified. Soft tissues are unremarkable. Left knee: Severe tricompartmental osteoarthritic change at the left knee greatest in the medial compartment. No acute fractures identified. Soft tissues are unremarkable. 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 Electronically signed by: Christina Thomas MD (10/08/2020 10:39 PM) [facility] DICTATED and SIGNED BY: CHRISTINA THOMAS MD DATE: 10/08/20 [id number] 0 Course & Med Decision Making: Course & Med Decision Making Pertinent Labs and Imaging studies reviewed. (See chart for details) 65-year-old female, vital signs reviewed, presents to the emergency department after a slip and fall onto her knees at home. Patient is morbidly obese, physical exam concerning for possible knee injury. X-ray ordered of bilateral knees, patient was anxious in appearance, stating that she has a hard time sleeping at night, patient states she is scared that she may have hurt her self. Patient was given 1 mg of Ativan p.o. Patient was given a 50 mg tablet of tramadol for her 10/10 pain. X-rays of knees were nonconcerning for acute fracture, however shows degenerative changes with [id number] osteoarthritic presentation. Discussed findings with patient, will place Felipe wrap's to both knees, RICE therapy, will give prescription for tramadol at home for acute pain. Patient gave verbal understanding of discharge home instructions, follow-up with primary care tomorrow for reevaluation, return to ER precautions and concerns, patient was discharged home without incident. Impression: Contusion bilateral knees. Dragon Disclaimer: Dragon Disclaimer: This electronic medical record was generated, in whole or in part, using a voice recognition dictation system. Departure Departure Impression: Primary Impression: Contusion of left knee Qualified Codes: S80.02XA - Contusion of left knee, initial encounter Additional Impression: Contusion of right knee Qualified Codes: S80.01XA - Contusion of right knee, initial encounter Disposition: 01 DC HOME SELF CARE/HOMELESS Condition: GOOD Referrals: JARETH GARZA MD (PCP) Patient Instructions: Contusion, Knee Wraps (Elastic Bandage) and RICE Additional Instructions: Please follow-up with your doctor tomorrow and let them know of your concerns about having a hard time sleeping at night as they may consider giving you a prescription for the Ativan that I gave you tonight. Please use rest ice and elevation and compression therapy to both knees. I have given you a prescription for tramadol for acute pain, use as directed. Return to the emergency department for worsening symptoms or other concerns. EMERGENCY DEPARTMENT GENERAL DISCHARGE INSTRUCTIONS Thank you for coming to [facility] Emergency Department (ED) today and trusting us with you care. We trust that you had a positive experience in our Emergency Department. If you wish to speak to the department management, you may call the Director at [phone]. YOUR FOLLOW UP INSTRUCTIONS ARE FOLLOWS: 1. Do you have a private Doctor? If you do not have a private doctor, please ask for a resource list of physicians or clinics that may be able to assist you with follow up care. 2. The Emergency Physicain has interpreted your x-rays. The X-Ray specialist will also review them. If there is a change in the findings, you will be notified in 48 hours when at all possible. 3. A lab test or culture has been done, your results will be reviewed and you will be notified if you need a change in treatment. ADDITIONAL INSTRUCTIONS AND INFORMATION: 1. Your care today has been supervised by a physician who is specially trained in emergency care. Many problems require more than one evaluation for a complete diagnosis and treatment. We recommend that you schedule your follow up appointment as recommended to ensure complete treatment of you illness or injury. If you are unable to obtain follow up care and continue to have a problem, or if your condition worsens, we recommend that you return to the ED. 2. We are not able to safely determine your condition over the phone nor are we able to give sound medical advice over the phone. For these safety reasons, if you call for medical advice we will ask you to come to the ED for further evaluation. 3. If you have any questions regarding these discharge instructions please call the ED at [phone]. SAFETY INFORMATION: In the interest of safety, wellness, and injury prevention; we encourage you to wear your sealbelt, if you smoke; quite smoking, and we encourage family to use a protective helmet for bicycling and other sporting events that present an increased risk for head injury. IF YOUR SYMPTOMS WORSEN OR NEW SYMPTOMS DEVELOP, OR YOU HAVE CONCERNS ABOUT YOUR CONDITION; OR IF YOUR CONDITION WORSENS WHILE YOU ARE WAITING FOR YOUR FOLLOW UP APPOINT MENT; EITHER CONTACT YOUR PRIMARY CARE DOCTOR, THE PHYSICIAN WHOSE NAME AND NUMBER YOU WERE GIVEN, OR RETURN TO THE ED IMMEDIATELY. Scripts Tramadol Hcl (TRAMADOL HCL) 50 Mg Tablet 50 MG PO Q6HRS PRN for PAIN, #15 TAB 0 Refills Prov: SEBLE MCCORMICK APRN 10/08/20 SEBLE MCCORMICK APRN Oct 08, 2020 22:11
--- NOTE | 2020-10-08 22:41 | RAD ---
Exam: Bilateral knee 3 views INDICATION: Fall TECHNIQUE: Frontal, lateral and oblique views of the bilateral knee Comparisons: None FINDINGS: Right knee: Severe degenerative change at the right knee greatest in the medial compartment with [id number]. No acute fractures identified. Soft tissues are unremarkable. Left knee: Severe tricompartmental osteoarthritic change at the left knee greatest in the medial compartment. No acute fractures identified. Soft tissues are unremarkable. 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 Electronically signed by: Christina Storey MD (10/08/2020 10:39 PM) [facility]
[2020-10-08] MEDS ORDERED: traMADol 50 MG TABLET PO ONE (23:00)
[2020-10-08] MEDS ORDERED: TRAM50TA PO (23:26)
[2020-10-08 23:32] VITALS: BP 126/62
--- NOTE | 2020-10-09 15:32 | RAD ---
Exam: Bilateral knee 3 views INDICATION: Fall TECHNIQUE: Frontal, lateral and oblique views of the bilateral knee Comparisons: None FINDINGS: Right knee: Severe degenerative change at the right knee greatest in the medial compartment with [id number]. No acute fractures identified. Soft tissues are unremarkable. Left knee: Severe tricompartmental osteoarthritic change at the left knee greatest in the medial compartment. No acute fractures identified. Soft tissues are unremarkable. 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 MTDD
== END 2020-10-08 23:55 | disposition home or self-care (01) ==
LOC: ER 22:08
DX: S80.02XA Contusion of left knee, initial encounter (principal); S80.01XA Contusion of right knee, initial encounter; G89.29 Other chronic pain; J45.909 Unspecified asthma, uncomplicated; E11.9 Type 2 diabetes mellitus without complications; I10 Essential (primary) hypertension; Z90.49 Acquired absence of other specified parts of digestive tract; Z88.0 Allergy status to penicillin; Z88.1 Allergy status to other antibiotic agents; Z88.2 Allergy status to sulfonamides; Z88.5 Allergy status to narcotic agent; Z91.013 Allergy to seafood; W01.0XXA Fall on same level from slipping, tripping and stumbling without subsequent striking against object, initial encounter; Y93.89 Activity, other specified; Y92.89 Other specified places as the place of occurrence of the external cause; Y99.8 Other external cause status
CPT/HCPCS: 73564; 73562-50; 99285-25

== ENCOUNTER 2020-10-20 19:28 | Emergency (ER) | payer MEDICARE ==
[~2020-10-20] VITALS: Ht 160 cm; Wt 150.0 kg
[2020-10-20] MEDS ORDERED: IPRATRPIUM/ALBUTEROL 0.5/2.5MG 3 ML NEBU. NEB ONE (20:15)
[2020-10-20] MEDS ORDERED: IPRATROPIUM/ALBUTEROL 20/100mcg/INH INHALER. INH ONE (20:45)
[2020-10-20] MEDS ORDERED: HYDROcodone/APAP 5/325MG 1 TAB TABLET PO ONE (21:00)
--- NOTE | 2020-10-20 21:23 | RAD ---
AP chest x-ray HISTORY: Shortness of breath. COMPARISON: Chest x-ray April 24, 2020. FINDINGS: Moderate cardiomegaly which has increased in size since the prior study. Mediastinum is unr emarkable. Prominence of the pulmonary vasculature may indicate vascular congestion. No pneumothorax, pulmonary opacities or pleural effusions. Bones are unremarkable. IMPRESSION: Cardiomegaly and pulmonary vascular congestion. No pulmonary edema or pleural effusions e vident. The size of the heart is increased since prior x-rays which could be due to progressive cardi ac enlargement or superimposed pericardial effusion. Electronically signed by: Sahil Castillo MD (10/20/2020 9:21 PM) [facility]
[2020-10-20 21:57] LABS: BASO % 0 % (0-3); EOS # 0.4 x10^3/uL (0.0-0.7); EOS % 4 % (0-3); HEMATOCRIT 29.1 % (36.0-47.0); HEMOGLOBIN 9.2 g/dL (12.0-15.5); LYMPH # 1.5 x10^3/uL (1.0-4.8); LYMPH % 14 % (24-48); MEAN CORPUSCULAR HEMOGLOBIN 25 pg (25-35); MEAN CORPUSCULAR HGB CONC 32 g/dL (31-37); MEAN CORPUSCULAR VOLUME 79 fL (79-100); MONO # 0.4 x10^3/uL (0.0-1.1); MONO % 4 % (0-9); NEUT # 8.5 x10^3/uL (1.8-7.7); NEUT % 78 % (31-73); PLATELET COUNT 208 x10^3/uL (140-400); RED BLOOD COUNT 3.69 x10^6/uL (3.50-5.40); RED CELL DISTRIBUTION WIDTH 18.1 % (11.5-14.5); WHITE BLOOD COUNT 10.9 x10^3/uL (4.0-11.0)
[2020-10-20 22:07] LABS: CALCIUM 9.1 mg/dL (8.5-10.1); CREATININE 2.2 mg/dL (0.6-1.0); GFR 26.9; POTASSIUM 5.1 mmol/L (3.5-5.1)
[2020-10-20 22:13] LABS: ALBUMIN/GLOBULIN RATIO 0.6 (1.0-1.7); TOTAL BILIRUBIN 0.4 mg/dL (0.2-1.0); TOTAL PROTEIN 8.4 g/dL (6.4-8.2)
[2020-10-20] MEDS ORDERED: IV NORMAL SALINE 1000ML BAG 1,000 ML IV ONE (22:45)
--- NOTE | 2020-10-21 00:49 | PHYS DOC ---
Past Medical History Past Medical History: Anemia, Anxiety, Asthma, Cancer, COPD, Diabetes-Type II, Fibromyalgia, Hypertension, Hypothyroid, Renal Disease, Other Additional Past Medical Histor: UTERINE CA, STARLA, CKD stg 3, memory impairment Past Surgical History: Cholecystectomy, Other Additional Past Surgical Histo: Hiatal hernia,L)breast wound Smoking Status: Never Smoker Alcohol Use: None Drug Use: None General Adult EDM: Chief Complaint: MECHANICAL FALL HPI: HPI: Patient is a 65 year old presents to the emergency department via EMS complaining of low back pain and anxiety. EMS distribution analyst states they have picked the patient up several times at her residence and transported her to various emergency departments for complaints from her family so they can no longer take care of her and want her to be in a mcc, EMS states that the patient's family's chief complaint is that the patient was short of breath at home. Patient states that she is scared because she feels if she falls that she would not be able to get up. Patient states that the last time she was here she was given a medication that helped her anxiety. Patient currently denies shortness of breath, chest pain, chest palpitations, nasal congestion or chest congestion. Patient rates her back pain a 7/10 on a 1-10 pain scale. Patient states that she would like to get a prescription for pain medication and to go home. Patient denies any other physical complaints or physical concerns. Patient's chief complaint of mechanical fall to the triage nurse and paramedics was clarified as patient was sitting on couch and slipped off the edge of couch onto her buttocks onto the floor stating that she did not actually fall. Review of Systems: Review of Systems: 14 body systems of review of systems have been reviewed. See HPI for pertinent positives and negative responses, otherwise all other systems are negative, nonpertinent or noncontributory. Heart Score: Risk Factors: Risk Factors: DM, Current or recent (<one month) smoker, HTN, HLP, family history of CAD, obesity. Risk Scores: Score 0 - 3: 2.5% MACE over next 6 weeks - Discharge Home Score 4 - 6: 20.3% MACE over next 6 weeks - Admit for Clinical Observation Score 7 - 10: 72.7% MACE over next 6 weeks - Early Invasive Strategies Current Medications: Current Medications Medications (Trade) Dose Ordered Sig/Erin Start Time Stop Time Status Last Admin Dose Admin Acetaminophen/ Hydrocodone Bitart (Lortab 5/325) 2 tab 1X ONCE 10/20/20 21:00 10/20/20 21:01 DC 10/20/20 21:19 2 TAB Albuterol/ Ipratropium (Combivent Respimat 20-100 Mcg) 1 puff 1X ONCE 10/20/20 20:45 10/20/20 20:46 DC 10/20/20 23:28 1 PUFF Albuterol/ Ipratropium (Duoneb) 3 ml 1X ONCE 10/20/20 20:15 10/20/20 21:59 DC Lorazepam (Ativan) 1 mg 1X ONCE 10/20/20 21:00 10/20/20 21:01 DC 10/20/20 21:19 1 MG Sodium Chloride 1,000 ml @ 1,000 mls/hr 1X ONCE 10/20/20 22:45 10/20/20 23:44 DC 10/20/20 23:28 1,000 MLS/HR Allergies: Allergies: Allergies Coded Allergies Type Severity Reaction Last Updated Verified Fish Containing Products Allergy Severe 03/11/17 Yes Penicillins Allergy Intermediate Rash 03/11/17 Yes Sulfa (Sulfonamide Antibiotics) Allergy Intermediate 08/09/17 Yes codeine Allergy Intermediate 03/17/17 Yes morphine Allergy Intermediate 10/08/20 Yes oxycodone Allergy Intermediate 03/17/17 Yes trazodone Allergy Intermediate 03/17/17 Yes metformin Allergy Mild Diarrhea 03/11/17 Yes Physical Exam: PE: Constitutional: Well developed, well nourished, no acute distress, non-toxic appearance. Morbidly obese 65-year-old female in no apparent distress. HENT: Normocephalic, atraumatic, bilateral external ears normal, oropharynx moist, no oral exudates, nose normal. Eyes: PERRLA, EOMI, conjunctiva normal, no discharge. Neck: Normal range of motion, no tenderness, supple, no stridor. Cardiovascular:Heart rate regular rhythm, no murmur Lungs & Thorax: Bilateral breath sounds clear to auscultation Abdomen: Bowel sounds normal, soft, no tenderness, no masses, no pulsatile masses. Skin: Warm, dry, no erythema, no rash. Back: No tenderness, no CVA tenderness. Extremities: No tenderness, no cyanosis, no clubbing, ROM intact, no edema. Neurologic: Alert and oriented X 3, normal motor function, normal sensory function, no focal deficits noted. Psychologic: Affect normal, judgement normal, mood normal. Current Patient Data: Labs: Laboratory Tests Test 10/20/20 21:30 White Blood Count 10.9 x10^3/uL (4.0-11.0) Red Blood Count 3.69 x10^6/uL (3.50-5.40) Hemoglobin 9.2 g/dL (12.0-15.5) L Hematocrit 29.1 % (36.0-47.0) L Mean Corpuscular Volume 79 fL (79-100) Mean Corpuscular Hemoglobin 25 pg (25-35) Mean Corpuscular Hemoglobin Concent 32 g/dL (31-37) Red Cell Distribution Width 18.1 % (11.5-14.5) H Platelet Count 208 x10^3/uL (140-400) Neutrophils (%) (Auto) 78 % (31-73) H Lymphocytes (%) (Auto) 14 % (24-48) L Monocytes (%) (Auto) 4 % (0-9) Eosinophils (%) (Auto) 4 % (0-3) H Basophils (%) (Auto) 0 % (0-3) Neutrophils # (Auto) 8.5 x10^3/uL (1.8-7.7) H Lymphocytes # (Auto) 1.5 x10^3/uL (1.0-4.8) Monocytes # (Auto) 0.4 x10^3/uL (0.0-1.1) Eosinophils # (Auto) 0.4 x10^3/uL (0.0-0.7) Basophils # (Auto) 0.0 x10^3/uL (0.0-0.2) Sodium Level 137 mmol/L (136-145) Potassium Level 5.1 mmol/L (3.5-5.1) Chloride Level 102 mmol/L (98-107) Carbon Dioxide Level 28 mmol/L (21-32) Anion Gap 7 (6-14) Blood Urea Nitrogen 33 mg/dL (7-20) H Creatinine 2.2 mg/dL (0.6-1.0) H Estimated GFR (Cockcroft-Gault) 26.9 BUN/Creatinine Ratio 15 (6-20) Glucose Level 190 mg/dL (70-99) H Calcium Level 9.1 mg/dL (8.5-10.1) Total Bilirubin 0.4 mg/dL (0.2-1.0) Aspartate Amino Transferase (AST) 13 U/L (15-37) L Alanine Aminotransferase (ALT) 17 U/L (14-59) Alkaline Phosphatase 123 U/L (46-116) H Total Protein 8.4 g/dL (6.4-8.2) H Albumin 3.0 g/dL (3.4-5.0) L Albumin/Globulin Ratio 0.6 (1.0-1.7) L Laboratory Tests 10/20/20 21:30 Laboratory Tests 10/20/20 21:30 Vital Signs: Vital Signs Date Time Temp Pulse Resp B/P (MAP) Pulse Ox O2 Delivery O2 Flow Rate FiO2 10/20/20 21:26 98 22 167/88 (114) 95 Room Air 10/20/20 19:30 98.3 98.3 EKG: EKG: [] Radiology/Procedures: Radiology/Procedures: [] Course & Med Decision Making: Course & Med Decision Making Pertinent Labs and Imaging studies reviewed. (See chart for details) 65-year-old female, vital signs stable, concerned for anxiety at home and is asking for pain control. Patient states she has a appointment to see her primary care physician this Tuesday so that she can obtain anxiety medication for home. Patient's physical examination was concerning for decreased ability to perform ADLs and care for self at home. Discussed with patient possibility of admission for possible mcc placement or rehab placement, patient states that she does not want this, patient states that she has increased anxiety and needs some pain medication so she will be able to get around and care for herself at home. Related to EMS statement of shortness of breath per family main complaint at home, a chest x-ray and basic serum labs were ordered. Chest x-ray unremarkable for acute process, the patient was not hypoxic, patient's concerning lab was creatinine of 2.2, discussed case with ED attending Dr. Fuentes who recommended patient receive 1 L of fluid and be discharged home. Discussed this plan with patient who is amenable to this plan. Patient was given 1 mg Ativan and 2 [place] 5/325 mg in the emergency department, patient states that she feels much better and would like to go home now. Patient states that she will stay for her 1 L of fluid prior to being discharged. Patient gave verbal understanding of discharge home instructions, strict follow- up with primary care this Tuesday stating she will keep her appointment, return to ER precautions and concerns, was discharged home without incident. Dragon Disclaimer: Dragon Disclaimer: This electronic medical record was generated, in whole or in part, using a voice recognition dictation system. Departure Departure Impression: Primary Impression: Anxiety about health Additional Impression: Low back pain Qualified Codes: M54.5 - Low back pain Disposition: DC HOME SELF CARE/HOMELESS Condition: GOOD Referrals: JARETH GARZA MD (PCP) Additional Instructions: Please take medications as prescribed, keep your appointment with your doctor this Tuesday, return to the ER for worsening symptoms or other concerns. EMERGENCY DEPARTMENT GENERAL DISCHARGE INSTRUCTIONS Thank you for coming to [facility] Emergency Department (ED) today and trusting us with you care. We trust that you had a positive experience in our Emergency Department. If you wish to speak to the department management, you may call the Director at [phone]. YOUR FOLLOW UP INSTRUCTIONS ARE FOLLOWS: 1. Do you have a private Doctor? If you do not have a private doctor, please ask for a resource list of physicians or clinics that may be able to assist you with follow up care. 2. The Emergency Physicain has interpreted your x-rays. The X-Ray specialist will also review them. If there is a change in the findings, you will be notified in 48 h ours when at all possible. 3. A lab test or culture has been done, your results will be reviewed and you will be notified if you need a change in treatment. ADDITIONAL INSTRUCTIONS AND INFORMATION: 1. Your care today has been supervised by a physician who is specially trained in emergency care. Many problems require more than one evaluation for a complete diagnosis and treatment. We recommend that you schedule your follow up appointment as recommended to ensure complete treatment of you illness or injury. If you are unable to obtain follow up care and continue to have a problem, or if your condition worsens, we recommend that you return to the ED. 2. We are not able to safely determine your condition over the phone nor are we able to give sound medical advice over the phone. For these safety reasons, if you call for medical advice we will ask you to come to the ED for further evaluation. 3. If you have any questions regarding these discharge instructions please call the ED at [phone]. SAFETY INFORMATION: In the interest of safety, wellness, and injury prevention; we encourage you to wear your sealbelt, if you smoke; quite smoking, and we encourage family to use a protective helmet for bicycling and other sporting events that present an increased risk for head injury. IF YOUR SYMPTOMS WORSEN OR NEW SYMPTOMS DEVELOP, OR YOU HAVE CONCERNS ABOUT YOUR CONDITION; OR IF YOUR CONDITION WORSENS WHILE YOU ARE WAITING FOR YOUR FOLLOW UP APPOINTMENT; EITHER CONTACT YOUR PRIMARY CARE DOCTOR, THE PHYSICIAN WHOSE NAME AND NUMBER YOU WERE GIVEN, OR RETURN TO THE ED IMMEDIATELY. Scripts Hydrocodone Bit/Acetaminophen (HYDROCODONE-APAP 5-325 ) 1 Tab Tablet 1 TAB PO PRN Q6HRS PRN for PAIN, #6 TAB 0 Refills Prov: SEBLE MCCORMICK APRN 10/21/20 SEBLE MCCORMICK APRN Oct 21, 2020 00:49
[2020-10-21] MEDS ORDERED: HYDR-2761 PO (01:01)
[2020-10-21 02:26] VITALS: BP 117/87
--- NOTE | 2020-10-22 09:07 | NUR ---
IP: Attempted to contact pt concerning COVID results. No answer. No voicemail.
== END 2020-10-21 03:25 | disposition home or self-care (01) ==
LOC: ER 19:28
DX: F41.9 Anxiety disorder, unspecified (principal); M54.5 Low back pain; Z20.822 Contact with and (suspected) exposure to COVID-19; R06.02 Shortness of breath; J44.9 Chronic obstructive pulmonary disease, unspecified; E11.9 Type 2 diabetes mellitus without complications; M79.7 Fibromyalgia; I10 Essential (primary) hypertension; E03.9 Hypothyroidism, unspecified; Z90.49 Acquired absence of other specified parts of digestive tract; Z98.890 Other specified postprocedural states; Z91.013 Allergy to seafood; Z88.2 Allergy status to sulfonamides; Z88.5 Allergy status to narcotic agent; Z88.6 Allergy status to analgesic agent; Z88.8 Allergy status to other drugs, medicaments and biological substances
CPT/HCPCS: 36415; 71045; 80053; 85025; 96360; 99285; C9803; J7030; U0003

== ENCOUNTER 2020-12-11 20:19 | Emergency (ER) | payer MEDICARE ==
[~2020-12-11] VITALS: Ht 160 cm; Wt 158.2 kg
[~2020-12-11 20:19] MED LIST changes: +AMLO-187 PO; +HYDR-2761 PO
[2020-12-11] MEDS ORDERED: IPRATRPIUM/ALBUTEROL 0.5/2.5MG 3 ML NEBU. NEB ONE (21:15)
[2020-12-11 21:16] LABS: BASO % 0 % (0-3); EOS # 0.4 x10^3/uL (0.0-0.7); EOS % 4 % (0-3); HEMATOCRIT 24.5 % (36.0-47.0); HEMOGLOBIN 7.8 g/dL (12.0-15.5); LYMPH # 1.3 x10^3/uL (1.0-4.8); LYMPH % 15 % (24-48); MEAN CORPUSCULAR HEMOGLOBIN 25 pg (25-35); MEAN CORPUSCULAR HGB CONC 32 g/dL (31-37); MEAN CORPUSCULAR VOLUME 80 fL (79-100); MONO # 0.4 x10^3/uL (0.0-1.1); MONO % 5 % (0-9); NEUT # 7.1 x10^3/uL (1.8-7.7); NEUT % 76 % (31-73); PLATELET COUNT 247 x10^3/uL (140-400); RED BLOOD COUNT 3.07 x10^6/uL (3.50-5.40); RED CELL DISTRIBUTION WIDTH 17.9 % (11.5-14.5); WHITE BLOOD COUNT 9.3 x10^3/uL (4.0-11.0)
[2020-12-11 21:26] LABS: CALCIUM 8.3 mg/dL (8.5-10.1); CREATININE 1.4 mg/dL (0.6-1.0); GFR 45.4; POTASSIUM 4.9 mmol/L (3.5-5.1)
[2020-12-11 21:32] LABS: ALBUMIN 2.6 g/dL (3.4-5.0); ALBUMIN/GLOBULIN RATIO 0.6 (1.0-1.7); TOTAL BILIRUBIN 0.5 mg/dL (0.2-1.0); TOTAL PROTEIN 7.1 g/dL (6.4-8.2)
--- NOTE | 2020-12-11 21:35 | RAD ---
EXAM: CHEST 1 VIEW History: Shortness of breath COMPARISON: 10/22/2020 TECHNIQUE: Single portable radiograph of the chest FINDINGS: Low lung volumes and technique accentuates heart size and pulmonary vascularity. Moderate prominent bilateral interstitial lung markings likely moderate congestive changes with bilateral lung airspace opacities particularly in the bibasilar lungs likely atelectasis or infiltrates . IMPRESSION: Moderate congestive changes with bilateral lung airspace opacities particularly in the bibasilar lung s likely atelectasis or infiltrates. Electronically signed by: William Orourke MD (12/11/2020 9:33 PM) [id number]
--- NOTE | 2020-12-11 22:21 | PHYS DOC ---
Past Medical History Past Medical History: Anemia, Anxiety, Asthma, Cancer, COPD, Diabetes-Type II, Fibromyalgia, Hypertension, Hypothyroid, Renal Disease, Other Additional Past Medical Histor: UTERINE CA, STARLA, CKD stg 3, memory impairment Past Surgical History: Cholecystectomy, Other Additional Past Surgical Histo: Hiatal hernia,L)breast wound Smoking Status: Never Smoker Alcohol Use: None Drug Use: None Adult General Chief Complaint Chief Complaint: SHORTNESS OF BREATH HPI HPI Patient is a 65 year old female with an extensive past medical history now presenting the emergency department with new onset of shortness of breath. Patient states the last 24 hours she developed worsening sensation of difficulty breathing primarily when she attempts to exert herself but also notes that is worsened with lying down. Patient does states she has developed mild intermittent nonproductive cough but denies any fever, chills or chest pain. Denies any dizziness or lightheadedness. States that she does have COPD and she has not taken any medication for this the last 3 days. Review of Systems Review of Systems Constitutional: Denies fever or chills [] Eyes: Denies change in visual acuity, redness, or eye pain [] HENT: Denies nasal congestion or sore throat [] Respiratory: Denies cough or shortness of breath [] Cardiovascular: No additional information not addressed in HPI [] GI: Denies abdominal pain, nausea, vomiting, bloody stools or diarrhea [] : Denies dysuria or hematuria [] Musculoskeletal: Denies back pain or joint pain [] Integument: Denies rash or skin lesions [] Neurologic: Denies headache, focal weakness or sensory changes [] Endocrine: Denies polyuria or polydipsia [] All other systems were reviewed and found to be within normal limits, except as documented in this note. Current Medications Current Medications Current Medications Medications (Trade) Dose Ordered Sig/Erin Start Time Stop Time Status Last Admin Dose Admin Albuterol/ Ipratropium (Duoneb) 3 ml 1X ONCE 12/11/20 21:15 12/11/20 21:16 DC Allergies Allergies Allergies Coded Allergies Type Severity Reaction Last Updated Verified Fish Containing Products Allergy Severe 03/11/17 Yes Penicillins Allergy Intermediate Rash 03/11/17 Yes Sulfa (Sulfonamide Antibiotics) Allergy Intermediate 08/09/17 Yes codeine Allergy Intermediate 03/17/17 Yes morphine Allergy Intermediate 2/10/21 Yes oxycodone Allergy Intermediate 03/17/17 Yes trazodone Allergy Intermediate 03/17/17 Yes metformin Allergy Mild Diarrhea 03/11/17 Yes Physical Exam Physical Exam Constitutional: Well developed, well nourished, no acute distress, non-toxic appearance. [] HENT: Normocephalic, atraumatic, bilateral external ears normal, oropharynx moist, no oral exudates, nose normal. [] Eyes: PERRLA, EOMI, conjunctiva normal, no discharge. [] Neck: Normal range of motion, no tenderness, supple, no stridor. [] Cardiovascular:Heart rate regular rhythm, no murmur [] Lungs & Thorax: Bilateral breath sounds clear to auscultation mild bibasilar crackles Abdomen: Bowel sounds normal, soft, no tenderness, no masses, no pulsatile masses. [] Skin: Warm, dry, no erythema, no rash. [] Back: No tenderness, no CVA tenderness. [] Extremities: No tenderness, no cyanosis, no clubbing, ROM intact, no edema. [] Neurologic: Alert and oriented X 3, normal motor function, normal sensory func tion, no focal deficits noted. [] Psychologic: Affect normal, judgement normal, mood normal. [] Current Patient Data Vital Signs Vital Signs Date Time Temp Pulse Resp B/P (MAP) Pulse Ox O2 Delivery O2 Flow Rate FiO2 12/11/20 20:19 98.5 87 24 157/120 (132) 100 Nasal Cannula 2.0 98.5 Lab Values Laboratory Tests Test 12/11/20 20:20 12/11/20 20:40 12/11/20 22:30 Influenza Type A Antigen Negative (NEGATIVE) Influenza Type B Antigen Negative (NEGATIVE) White Blood Count 9.3 x10^3/uL (4.0-11.0) Red Blood Count 3.07 x10^6/uL (3.50-5.40) L Hemoglobin 7.8 g/dL (12.0-15.5) L Hematocrit 24.5 % (36.0-47.0) L Mean Corpuscular Volume 80 fL (79-100) Mean Corpuscular Hemoglobin 25 pg (25-35) Mean Corpuscular Hemoglobin Concent 32 g/dL (31-37) Red Cell Distribution Width 17.9 % (11.5-14.5) H Platelet Count 247 x10^3/uL (140-400) Neutrophils (%) (Auto) 76 % (31-73) H Lymphocytes (%) (Auto) 15 % (24-48) L Monocytes (%) (Auto) 5 % (0-9) Eosinophils (%) (Auto) 4 % (0-3) H Basophils (%) (Auto) 0 % (0-3) Neutrophils # (Auto) 7.1 x10^3/uL (1.8-7.7) Lymphocytes # (Auto) 1.3 x10^3/uL (1.0-4.8) Monocytes # (Auto) 0.4 x10^3/uL (0.0-1.1) Eosinophils # (Auto) 0.4 x10^3/uL (0.0-0.7) Basophils # (Auto) 0.0 x10^3/uL (0.0-0.2) Sodium Level 143 mmol/L (136-145) Potassium Level 4.9 mmol/L (3.5-5.1) Chloride Level 106 mmol/L (98-107) Carbon Dioxide Level 28 mmol/L (21-32) Anion Gap 9 (6-14) Blood Urea Nitrogen 21 mg/dL (7-20) H Creatinine 1.4 mg/dL (0.6-1.0) H Estimated GFR (Cockcroft-Gault) 45.4 BUN/Creatinine Ratio 15 (6-20) Glucose Level 154 mg/dL (70-99) H Calcium Level 8.3 mg/dL (8.5-10.1) L Total Bilirubin 0.5 mg/dL (0.2-1.0) Aspartate Amino Transferase (AST) 19 U/L (15-37) Alanine Aminotransferase (ALT) 19 U/L (14-59) Alkaline Phosphatase 107 U/L (46-116) Creatine Kinase 55 U/L (26-192) [id number]-Type Natriuretic Peptide 787 pg/mL (0-124) H Total Protein 7.1 g/dL (6.4-8.2) Albumin 2.6 g/dL (3.4-5.0) L Albumin/Globulin Ratio 0.6 (1.0-1.7) L SARS-CoV-2 Antigen (Rapid) Negative (NEGATIVE) Laboratory Tests 4/15/21 20:40 Laboratory Tests 12/11/20 20:40 EKG EKG [] Radiology/Procedures Radiology/Procedures [] Course & Med Decision Making Course & Med Decision Making Pertinent Labs and Imaging studies reviewed. (See chart for details) 65-year-old female presents emergency department complaint of new onset of shortness of breath without any significant hypoxia considerations at this time include COPD or CHF exacerbation as well as concern for COVID-19 viral pneumonia. At this time will obtain chest x-ray, blood work-up for any other significant underlying etiology and treat the patient symptomatically with a DuoNeb. 23:32 -labs reviewed and unremarkable. No significant changes. Chest x-ray does demonstrate mild atelectasis but no other significant changes. Patient states that she is feeling better after getting DuoNeb. At this time we will pl an to discharge home Dragon Disclaimer Dragon Disclaimer This electronic medical record was generated, in whole or in part, using a voice recognition dictation system. Departure Departure Impression: Primary Impression: COPD exacerbation Disposition: 01 HOME / SELF CARE / HOMELESS Condition: GOOD Referrals: JARETH GARZA MD (PCP) Patient Instructions: Shortness of Breath Additional Instructions: EMERGENCY DEPARTMENT GENERAL DISCHARGE INSTRUCTIONS Thank you for coming to [facility] Emergency Department (ED) today and trusting us with you care. We trust that you had a positive experience in our Emergency Department. If you wish to speak to the department management, you may call the Director at [phone]. YOUR FOLLOW UP INSTRUCTIONS ARE FOLLOWS: 1. Do you have a private Doctor? If you do not have a private doctor, please ask for a resource list of physicians or clinics that may be able to assist you with follow up care. 2. The Emergency Physicain has interpreted your x-rays. The X-Ray specialist will also review them. If there is a change in the findings, you will be notified in 48 hours when at all possible. 3. A lab test or culture has been done, your results will be reviewed and you will be notified if you need a change in treatment. ADDITIONAL INSTRUCTIONS AND INFORMATION: 1. Your care today has been supervised by a physician who is specially trained in emergency care. Many problems require more than one evaluation for a complete diagnosis and treatment. We recommend that you schedule your follow up appointment as recommended to ensure complete treatment of you illness or injury. If you are unable to obtain follow up care and continue to have a problem, or if your condition worsens, we recommend that you return to the ED. 2. We are not able to safely determine your condition over the phone nor are we able to give sound medical advice over the phone. For these safety reasons, if you call for medical advice we will ask you to come to the ED for further evaluation. 3. If you have any questions regarding these discharge instructions please call the ED at [phone]. SAFETY INFORMATION: In the interest of safety, wellness, and injury prevention; we encourage you to wear your sealbelt, if you smoke; quite smoking, and we encourage family to use a protective helmet for bicycling and other sporting events that present an increased risk for head injury. IF YOUR SYMPTOMS WORSEN OR NEW SYMPTOMS DEVELOP, OR YOU HAVE CONCERNS ABOUT YOUR CONDITION; OR IF YOUR CONDITION WORSENS WHILE YOU ARE WAITING FOR YOUR FOLLOW UP APPOINTMENT; EITHER CONTACT YOUR PRIMARY CARE DOCTOR, THE PHYSICIAN WHOSE NAME AND NUMBER YOU WERE GIVEN, OR RETURN TO THE ED IMMEDIATELY. JOSE ALBERTO BERGER MD Dec 11, 2020 22:20
[2020-12-11 22:55] LABS: INFLUENZA A PATIENT NEGATIVE (NEGATIVE); INFLUENZA B PATIENT NEGATIVE (NEGATIVE)
[2020-12-11 23:46] VITALS: BP 118/56
--- NOTE | 2020-12-12 01:57 | EKG ---
[facility] [address] [place] [address] Test Date: 2020-12-11 Test Time: 20:36:58 Pat Name: KELSY HOOD Department: Room: Gender: F Manufacturing Design Engineer: : [id number] Requested By: JOSE ALBERTO BERGER Order Number: [id number] Reading MD: Measurements Intervals [place] Rate: 88 P: 48 TN: 174 QRS: 18 QRSD: 90 T: 72 QT: 364 QTc: 444 Interpretive Statements SINUS RHYTHM T ABNORMALITY IN HIGH LATERAL LEADS ABNORMAL ECG RI6.02 No previous ECG available for comparison
== END 2020-12-11 23:55 | disposition home or self-care (01) ==
LOC: ER 20:19
DX: J44.1 Chronic obstructive pulmonary disease with (acute) exacerbation (principal); Z20.822 Contact with and (suspected) exposure to COVID-19; R20.2 Paresthesia of skin; R05 Cough; D64.9 Anemia, unspecified; F41.9 Anxiety disorder, unspecified; M79.7 Fibromyalgia; E11.9 Type 2 diabetes mellitus without complications; E03.9 Hypothyroidism, unspecified; I10 Essential (primary) hypertension; Z90.49 Acquired absence of other specified parts of digestive tract; Z98.890 Other specified postprocedural states; Z91.013 Allergy to seafood; Z88.0 Allergy status to penicillin; Z88.2 Allergy status to sulfonamides; Z88.6 Allergy status to analgesic agent; Z88.5 Allergy status to narcotic agent; Z88.8 Allergy status to other drugs, medicaments and biological substances
CPT/HCPCS: 36415; 71045; 80053; 82550; 83880; 85025; 87426; 87804; 93005; 99285; U0003; U0005

== ENCOUNTER 2021-01-02 18:36 | Emergency (ER) | payer MEDICARE ==
[~2021-01-02] VITALS: Ht 167.6 cm; Wt 159.1 kg
[2021-01-02 20:15] LABS: CALCIUM 8.2 mg/dL (8.5-10.1); CREATININE 2.7 mg/dL (0.6-1.0); GFR 21.3; POTASSIUM 3.8 mmol/L (3.5-5.1)
--- NOTE | 2021-01-02 20:59 | ED.ADGEN ---
Past Medical History Past Medical History: Anemia, Anxiety, Asthma, Cancer, COPD, Diabetes-Type II, Fibromyalgia, Hypertension, Hypothyroid, Renal Disease, Other Additional Past Medical Histor: UTERINE CA, STARLA, CKD stg 3, memory impairment, HEART ATTACK W/ CARDIAC CATH Past Surgical History: Cholecystectomy, Other Additional Past Surgical Histo: Hiatal hernia,L)breast wound Smoking Status: Never Smoker Alcohol Use: None Drug Use: None General Adult EDM: Chief Complaint: ABNORMAL LABS HPI: HPI: Patient is a 65 year old AA female sent to the emergency department for evaluation of possible hyperkalemia from her nephrology office. Patient reports that she was told to go to the ER for evaluation by her doctors office. She had blood drawn according to the nurse at the nephrology office the patient's potassium was 6.5, she is not on dialysis and has not had problems with hyperkalemia in the past. Patient does have chronic renal insufficiency. Patient denies any complaints of chest pain, nausea, vomiting, diarrhea, fever, shortness of breath, cough, body aches, fatigue, rash, chills, abdominal pain, or palpitations. She denies any pain or any complaints at this time. Review of Systems: Review of Systems: Complete ROS is negative unless otherwise noted in HPI. Allergies: Allergies: Allergies Coded Allergies Type Severity Reaction Last Updated Verified Fish Containing Products Allergy Severe 03/11/17 Yes Penicillins Allergy Intermediate Rash 03/11/17 Yes Sulfa (Sulfonamide Antibiotics) Allergy Intermediate 08/09/17 Yes codeine Allergy Intermediate 03/17/17 Yes morphine Allergy Intermediate 10/08/20 Yes oxycodone Allergy Intermediate 03/17/17 Yes trazodone Allergy Intermediate 03/17/17 Yes metformin Allergy Mild Diarrhea 03/11/17 Yes Physical Exam: PE: See Above Constitutional: Well developed, well nourished, no acute distress, non-toxic appearance, obese. [] HENT: Normocephalic, atraumatic, bilateral external ears normal, nose normal. [] Eyes: PERRLA, EOMI, conjunctiva normal, no discharge. [] Neck: Normal range of motion, no stridor. [] Cardiovascular:Heart rate regular rhythm Lungs & Thorax: Respirations even and unlabored, no retractions, no respiratory distress Abdomen: soft, no tenderness Skin: Warm, dry, no erythema, no rash. [] Extremities: No cyanosis, ROM intact, 1+ edema BLE Neurologic: Alert and oriented X 3, no focal deficits noted. [] Psychologic: Affect normal, judgement normal, mood normal. [] Current Patient Data: Labs: Laboratory Tests Test 01/02/21 19:53 Sodium Level 143 mmol/L (136-145) Potassium Level 3.8 mmol/L (3.5-5.1) Chloride Level 105 mmol/L (98-107) Carbon Dioxide Level 28 mmol/L (21-32) Anion Gap 10 (6-14) Blood Urea Nitrogen 48 mg/dL (7-20) H Creatinine 2.7 mg/dL (0.6-1.0) H Estimated GFR (Cockcroft-Gault) 21.3 Glucose Level 196 mg/dL (70-99) H Calcium Level 8.2 mg/dL (8.5-10.1) L Laboratory Tests 01/02/21 19:53 EKG: EK-sinus rhythm, rate 92, no peak T waves, no STEMI, read by Dr. Sands [] Heart Score: C/O Chest Pain: No Risk Factors: Risk Factors: DM, Current or recent (<one month) smoker, HTN, HLP, family history of CAD, obesity. Risk Scores: Score 0 - 3: 2.5% MACE over next 6 weeks - Discharge Home Score 4 - 6: 20.3% MACE over next 6 weeks - Admit for Clinical Observation Score 7 - 10: 72.7% MACE over next 6 weeks - Early Invasive Strategies Radiology/Procedures: Radiology/Procedures: [] Course & Med Decision Making: Course & Med Decision Making Pertinent Labs and Imaging studies reviewed. (See chart for details) 65-year-old female sent for evaluation of possible hyperkalemia. EKG did not reveal any acute findings. Patient denied any complaints. She did request information on what type of food she should eat with her renal disease. Recheck of the patient's blood work revealed a normal potassium of 3.8. Patient denied any complaints. Nondialysis renal diet instructions were given to the patient as requested. She was encouraged to follow-up with her primary care doctor next week, return to the ER if symptoms worsen or she developed chest pain. Patient verbalized an understanding of home care, medications, follow-up, and return to ED instructions and was in agreement with the plan of care. [] Dragon Disclaimer: Dragon Disclaimer: This electronic medical record was generated, in whole or in part, using a voice recognition dictation system. Departure Departure Impression: Primary Impression: Encounter for medical screening examination Disposition: HOME / SELF CARE / HOMELESS Condition: STABLE Referrals: JARETH GARZA MD (PCP) Patient Instructions: Renal Diet, Pre-Dialysis Additional Instructions: Your Potassium today is 3.8 in the ER, this is normal. Please follow up with your primary care doctor next week. Return to the ER if you develop fever, chest pain, or any other complaints. RICO URBINA RIDES SUPERVISOR January 02, 2021 20:59
[2021-01-02 21:27] VITALS: BP 152/73
--- NOTE | 2021-01-02 21:42 | EKG ---
[facility] [address] [place] [address] Test Date: 2021-01-02 Test Time: 19:43:28 Pat Name: KELSY HOOD Department: Room: Gender: F Placement Officer: : [id number] Requested By: RICO URBINA Order Number: [id number] Reading MD: Measurements Intervals [place] Rate: 92 P: 7 PA: 190 QRS: 15 QRSD: 94 T: 58 QT: 362 QTc: 453 Interpretive Statements SINUS RHYTHM QRS(T) CONTOUR ABNORMALITY CONSIDER ANTEROSEPTAL MYOCARDIAL DAMAGE POSSIBLY ABNORMAL ECG RI6.01 No previous ECG available for comparison
== END 2021-01-02 21:45 | disposition home or self-care (01) ==
LOC: ER 18:36
DX: I12.9 Hypertensive chronic kidney disease with stage 1 through stage 4 chronic kidney disease, or unspecified chronic kidney disease (principal); E11.22 Type 2 diabetes mellitus with diabetic chronic kidney disease; N18.9 Chronic kidney disease, unspecified; J44.9 Chronic obstructive pulmonary disease, unspecified; E03.9 Hypothyroidism, unspecified; Z90.49 Acquired absence of other specified parts of digestive tract; Z98.890 Other specified postprocedural states; Z88.0 Allergy status to penicillin; Z88.5 Allergy status to narcotic agent; Z88.1 Allergy status to other antibiotic agents; Z88.2 Allergy status to sulfonamides; Z91.013 Allergy to seafood; Z88.8 Allergy status to other drugs, medicaments and biological substances
CPT/HCPCS: 36415; 80048; 93005; 99285-25